=== PATIENT | female | born 1975 | race Caucasian/White ===

== ENCOUNTER 2019-03-18 06:48 | Outpatient (CLI) | payer BC, OTHER ==
[2019-03-19 13:09] LABS: ESTRADIOL 68.8 pg/mL (.); FSH, SERUM 41.2 mIU/mL (.); LUTEINIZING HORMONE 48.7 mIU/mL (.); PROGESTERONE 0.3 ng/mL (.); PROLACTIN 20.8 ng/mL (4.8-23.3)
== END 2019-03-18 23:59 | disposition home or self-care (01) ==
LOC: LAB 06:48
PROVIDERS: ATTEND Physician Assistant
DX: L81.1 Chloasma (principal); R23.2 Flushing; R74.8 Abnormal levels of other serum enzymes; N92.6 Irregular menstruation, unspecified
CPT/HCPCS: 36415; 82670; 82679; 82977; 83001; 83002; 84075; 84080; 84144; 84146

== ENCOUNTER 2019-04-21 10:56 | Emergency (ER) | payer OTHER ==
[~2019-04-21] VITALS: Ht 160 cm; Wt 79.5 kg
[2019-04-21 11:04] VITALS: BP 143/85
[2019-04-21 11:32] LABS: URINE HCG NEGATIVE (NEG)
[2019-04-21 11:41] LABS: CLARITY,URINE CLOUDY (Clear); COLOR,URINE STRAW (Yellow); GLUCOSE, URINE NEGATIVE (Neg); KETONES,URINE NEGATIVE (Neg); LEUKOCYTE ESTERASE ,URINE LARGE (Neg); NITRITES, URINE NEGATIVE (Neg); OCCULT BLOOD,URINE LARGE (Neg); PH,URINE 5.5 (4.8-8.0); PROTEIN,URINE NEGATIVE (Neg); UROBILINOGEN,URINE 0.2 E.U/dL (0.2-1.0)
[2019-04-21 11:42] LABS: UA COLLECTION TYPE CLN CATCH MIDSTREAM
[2019-04-21 12:10] LABS: RBC,URINE 0-2 /HPF (0-2); SQUAMOUS EPITHELIAL CELL,UR FEW /LPF (FEW); WBC,URINE TNTC /HPF (0-4)
[2019-04-21 12:11] LABS: BACTERIA,URINE 1+ /HPF (Neg); WBC CLUMPS,URINE FEW /HPF (NEGATIVE)
[2019-04-21] MEDS ORDERED: phenazopyridine 100mg tablet PO ONE (12:25)
[2019-04-21] MEDS ORDERED: CefTRIAXone 1000mg IM Kit (w/lidocaine diluent) IM ONE (12:25)
[2019-04-21] MEDS ORDERED: ciprofloxacin 250mg tablet PO ONE (12:25)
[2019-04-21] MEDS ORDERED: PHEN-716 PO (12:30)
[2019-04-21] MEDS ORDERED: CIPR-259 PO (12:30)
== END 2019-04-21 12:48 | disposition home or self-care (01) ==
LOC: ER 10:57
DX: N39.0 Urinary tract infection, site not specified (principal); Z87.442 Personal history of urinary calculi
CPT/HCPCS: 81001; 81025; 87088; 87186; 96372; 99283; J0696; 87077

== ENCOUNTER 2019-07-29 06:42 | Outpatient (CLI) | payer OTHER ==
[~2019-07-29 06:42] MED LIST: PHEN-716 PO
[2019-07-29 07:45] LABS: ALANINE AMINOTRANSFERASE 27 U/L (12-78); ALBUMIN 4.2 G/DL (3.4-5.0); ALBUMIN/GLOBULIN RATIO 1.1 (1.1-1.5); ALKALINE PHOSPHATASE 138 IU/L (46-116); ANION GAP 7 (8-16); ASPARTATE AMINO TRANSFERASE 23 U/L (10-37); BILIRUBIN,TOTAL 0.5 MG/DL (0.1-1.0); BLOOD UREA NITROGEN 12 MG/DL (7-18); CALCIUM 8.5 MG/DL (8.5-10.1); CHLORIDE 102 MMOL/L (99-107); CREATININE 0.75 MG/DL (0.40-0.90); GLUCOSE 92 MG/DL (70-104); POTASSIUM 4.2 MMOL/L (3.5-5.1); SODIUM 136 MMOL/L (135-145); TOTAL PROTEIN 7.9 G/DL (6.4-8.2); eGFR 85 ML/MIN
[2019-07-30 11:26] LABS: ESTRADIOL 34.2 pg/mL (.); FSH, SERUM 41.4 mIU/mL (.); PROGESTERONE 0.2 ng/mL (.)
[2019-07-31 17:47] LABS: TESTOSTERONE, FREE, DIRECT 9.4 pg/mL (0.0-4.2)
== END 2019-07-29 23:59 | disposition home or self-care (01) ==
LOC: LAB 06:42
PROVIDERS: ATTEND Specialist
DX: N91.5 Oligomenorrhea, unspecified (principal)
CPT/HCPCS: 36415; 80053; 82670; 83001; 84144; 84146; 84270; 84402; 84403

== ENCOUNTER 2019-12-20 06:39 | Outpatient (CLI) | payer OTHER ==
[2019-12-20 07:00] LABS: HEMATOCRIT 37.5 % (35.0-45.0); HEMOGLOBIN 12.4 g/dl (12.0-16.0); MEAN CORPUSCULAR HEMOGLOBIN 28.7 PG (27.0-31.0); MEAN CORPUSCULAR VOLUME 87.1 FL (78-98); MEAN PLATELET VOLUME 7.1 FL (7.4-10.4); PLATELET COUNT 412 X10'3 (140-440); RED CELL DISTRIBUTION WIDTH 12.9 % (11.5-14.5); WHITE BLOOD COUNT 11.6 X10'3 (4.5-11.0)
== END 2019-12-20 23:59 | disposition home or self-care (01) ==
LOC: LAB 06:39
PROVIDERS: ATTEND Obstetrics & Gynecology
DX: N92.0 Excessive and frequent menstruation with regular cycle (principal)
CPT/HCPCS: 36415; 85027

== ENCOUNTER 2020-08-07 13:06 | Outpatient (CLI) | payer BC | END 2020-08-07 23:59 | disposition home or self-care (01) | LOC: LAB 13:06 | PROVIDERS: ATTEND Physician Assistant | DX: N39.0 Urinary tract infection, site not specified (principal) | CPT/HCPCS: 87077; 87088; 87186 ==

== ENCOUNTER 2020-09-21 09:22 | Inpatient (IN) | payer BC ==
[2020-09-14 15:52] LABS: BASOPHILS # (AUTO) 0.1 X10'3 (0-0.2); BASOPHILS % (AUTO) 0.6 % (0-1); EOSINOPHILS # (AUTO) 0.4 X10'3 (0-0.9); EOSINOPHILS % (AUTO) 2.7 % (0-6); LYMPHOCYTES % (AUTO) 15.2 % (21-51); MEAN CORPUSCULAR HEMOGLOBIN 26.3 PG (27.0-31.0); MEAN CORPUSCULAR VOLUME 79.8 FL (78-98); MONOCYTES # (AUTO) 0.6 X10'3 (0-0.9); MONOCYTES % (AUTO) 4.1 % (2-12); NEUTROPHILS # (AUTO) 10.3 X10'3 (1.8-7.7); NEUTROPHILS % (AUTO) 77.4 % (42-75); PRE OP HEMATOCRIT 36.1 % (35.0-45.0); PRE OP HEMOGLOBIN 11.9 g/dL (12.0-16.0); PRE OP PLATELET COUNT 438 X10'3 (140-440); RED BLOOD COUNT 4.52 X10'6 (4.20-5.60); RED CELL DISTRIBUTION WIDTH 16.1 % (11.5-14.5)
[2020-09-14 16:05] LABS: ALBUMIN 3.6 G/DL (3.4-5.0); ALBUMIN/GLOBULIN RATIO 0.9 (1.1-1.5); ALKALINE PHOSPHATASE 86 IU/L (46-116); BLOOD UREA NITROGEN 9 MG/DL (7-18); BUN/CREATININE RATIO 9.6 (6.6-38.0); CALCIUM 8.6 MG/DL (8.5-10.1); CHLORIDE 101 MMOL/L (99-107); CREATININE 0.94 MG/DL (0.40-0.90); PRE OP ALT 26 U/L (30-65); PRE OP ANION GAP 13 (8-16); PRE OP AST 21 U/L (10-37); PRE OP BILIRUB, TOTAL 0.2 MG/DL (0.0-1.0); PRE OP GLUCOSE 115 MG/DL (70-104); PRE OP POTASSIUM 3.8 MMOL/L (3.4-5.1); PRE OP SODIUM 138 MMOL/L (135-145); TOTAL CARBON DIOXIDE 24.1 MMOL/L (24-32); TOTAL PROTEIN 7.5 G/DL (6.4-8.2); eGFR 65 ML/MIN
[2020-09-14 16:30] LABS: HCG SERUM QL NEGATIVE
[2020-09-21] VITALS (20 sets, daily range): BP systolic 95–140; BP diastolic 52–93
[~2020-09-21] VITALS: Ht 157.5 cm; Wt 79.4 kg
[~2020-09-21 09:22] MED LIST changes: -PHEN-716 PO; +[UNRECOGNIZED DRUG - CODE] PO; +ceFAZolin 2gm in dextrose, iso 50 ML IV ONE; +famotidine 20mg tablet PO ONE; +ringers solution, lacted 1,000 ML IV SCH
[2020-09-21] MEDS ORDERED: BUPIVACAINE liposomal/PF 13.3 MG/ML vial IM ONE (12:50)
[2020-09-21] MEDS ORDERED: BUPIVAcaine/PF 2.5mg/ml (0.25%) 10ml vial ONE (12:50)
[2020-09-21] MEDS ORDERED: BUPIVAcaine 0.25% w/Epi /PF 30ml vial ONE (12:59)
[2020-09-21] MEDS ORDERED: midazolam 2 mg/2 ml injection ONE (13:09)
[2020-09-21] MEDS ORDERED: fentaNYL /PF 50mcg/ml 5ml ampule ONE (13:11)
[2020-09-21] MEDS ORDERED: acetaminophen 1,000mg/100ml IV 100 ML IV ONE (13:44)
[2020-09-21] MEDS ORDERED: propofol inj 20 ML IV ONE (13:50)
[2020-09-21] MEDS ORDERED: LIDOcaine 2% (20mg/ml) 5ml vial ONE (13:50)
[2020-09-21] MEDS ORDERED: rocuronium 10mg/ml inj IV ONE (13:50)
[2020-09-21] MEDS ORDERED: dexamethasone sod phosphate 4mg/ml inj. ONE (14:21)
[2020-09-21] MEDS ORDERED: ondansetron/PF 4mg/2ml inj ONE (14:22)
[2020-09-21] MEDS ORDERED: glycopyrrolate 0.2mg/ml inj ONE (14:45)
[2020-09-21] MEDS ORDERED: diphenhydrAMINE 50 mg/ml inj IV PRN (14:45)
[2020-09-21] MEDS ORDERED: zolpidem 5mg tablet PO PRN (14:45)
[2020-09-21] MEDS ORDERED: HYDROcodone/acetaminophen 5mg/325mg tablet PO PRN (14:45)
[2020-09-21] MEDS ORDERED: ondansetron/PF 4mg/2ml inj IV PRN ×2 (14:45→15:15)
[2020-09-21] MEDS ORDERED: mag hydrox/Alum hydrox/simeth 30ml oral suspension PO PRN (14:45)
[2020-09-21] MEDS ORDERED: neostigmine methylsulfate 1 MG/ML 10ml vial ONE (14:45)
[2020-09-21] MEDS ORDERED: ringers solution, lacted 1,000 ML IV SCH ×2 (14:45→15:15)
[2020-09-21] MEDS ORDERED: CADD PCA waste documentation MC PRN (14:45)
[2020-09-21] MEDS ORDERED: naloxone 0.4 mg/ml inj IV PRN (14:45)
[2020-09-21] MEDS ORDERED: magnesium hydroxide 30ml (MOM) UD suspension PO PRN (14:45)
[2020-09-21] MEDS ORDERED: morphine 10mg/ml inj. ONE (14:49)
[2020-09-21] MEDS ORDERED: meperidine/PF 25mg/ml syringe ONE (14:52)
--- NOTE | 2020-09-21 14:56 | NUR ---
Received from OR via [facility], accompanied by Anesthesiologist and report given by Anesthesiologist. PATIENT IS CRYING LAYING ON [employer], COMPLAINS OF PAIN, DEMEROL 25MG IV GIVEN FOR PAIN AT 1455, INCISION SITE AT LOWER ABDOMEN WITH KEN AND STERI STRIPS IN PLACE, NO DRAINAGE OR BLEEDING NOTED AT THIS TIME, PIV LEFT WRIST 20G LR RUNNING AT 100ML/HR, SUN CATHETER IN PLACE DRAINING LIGHT YELLOW URINE IN BAG, WILL MONITOR. Addendum: 09/21/20 at 1504 by Kareem Luz RN, RN Amended: Links added.
[2020-09-21] MEDS: HYDROmorphone/NS 1 mg/ml CADD 50 ML IV SCH ×6 (15:00→23:00)
[2020-09-21] MEDS ORDERED: ketorolac trometh. 30mg/ml inj. IV ONE (15:00)
[2020-09-21] MEDS ORDERED: proCHLORperazine 10 MG/2 ml inj IV PRN (15:15)
[2020-09-21] MEDS ORDERED: hydrALAZINE 20mg/ml inj. IV PRN (15:15)
[2020-09-21] MEDS ORDERED: labetalol 20mg/4ml (5mg/ml) syringe IV PRN (15:15)
[2020-09-21] MEDS ORDERED: morphine 2 MG/ML inj. syringe IV PRN (15:15)
[2020-09-21] MEDS ORDERED: meperidine/PF 25mg/ml syringe IV PRN ×3 (15:15)
[2020-09-21] MEDS ORDERED: morphine 4 MG/ML inj SYRINge IV PRN (15:15)
--- NOTE | 2020-09-21 16:18 | NUR ---
Patient in room [facility]. I have received report from DEBORAH CAMPBELL FROM [facility] and had the opportunity to ask questions and assume patient care.
--- NOTE | 2020-09-21 16:37 | NUR ---
ALL CRITERIA FOR TRANSFER TO THE FLOOR HAS BEEN ACHIEVED. REPORT GIVEN RO PURNIMA CABRERA, AND ALL QUESTIONS ANSWERED, VSS. BED LOW 3 RAILS UP, CALL LIGHT PRESENT AND PATIENT HOOKED UP TO ALL LINES AND VSS. PATIENTS RN PRESENT TO ACCEPT CARE. SUN CATHETER WITH LIGHT YELLOW URINE DRAINING IN BAG, BAG IS EMPTIED 180ML OF URINE OUTPUT, PURNIMA CABRERA IS PRESENT AT THE BEDSIDE TO ASSESS THE PATIENT, RESEARCH INSTRUCTOR IN USE, PATIENT IS IN 5/10 PAIN, TOLERABLE LEVEL AT THIS TIME. SCDS ON BILATERAL LOWER EXTREMITIES, PIV ON LEFT WRIST 20G RUNNING WITH LR 100ML/HR, BG 137 PRIOR TO TRANSFER, INCISION SITE ON LOWER ABD CLEAN AND DRY WITH NO DRAINAGE OR BLEEDING. Addendum: 09/21/20 at 1642 by Kareem Hamilton - DEBORAH RN Amended: Links added.
--- NOTE | 2020-09-21 18:30 | NUR ---
Problems reprioritized. Patient report given, questions answered & plan of care reviewed with DEBORAH HILL.
--- NOTE | 2020-09-21 18:53 | NUR ---
Patient in room [facility]. I have received report from PURNIMA CABRERA and had the opportunity to ask questions and assume patient care.
[2020-09-21] MEDS: docusate sod 100mg capsule PO SCH (20:00)
[2020-09-22] VITALS: BP 134/80
[2020-09-22] MEDS: HYDROmorphone/NS 1 mg/ml CADD 50 ML IV SCH ×3 (01:00→05:00)
--- NOTE | 2020-09-22 05:48 | NUR ---
FORENSIC ECONOMIST DISCONTINUED AT 0540. Addendum: 09/22/20 at 0548 by Ledy Maldonado RN Amended: Links added.
--- NOTE | 2020-09-22 06:05 | NUR ---
Patient in room [facility]. I have received report from DEBORAH Villafana and had the opportunity to ask questions and assume patient care.
[2020-09-22 06:30] VITALS: BP 121/75
[2020-09-22 06:33] LABS: BASOPHILS % (AUTO) 0.1 % (0-1); EOSINOPHILS % (AUTO) 0 % (0-6); HEMATOCRIT 37.4 % (35.0-45.0); HEMOGLOBIN 12.1 g/dl (12.0-16.0); LYMPHOCYTES % (AUTO) 5.8 % (21-51); MEAN CORPUSCULAR HEMOGLOBIN 26.1 PG (27.0-31.0); MEAN CORPUSCULAR HGB CONC 32.3 g/dL (33.0-36.5); MEAN CORPUSCULAR VOLUME 80.7 FL (78-98); MEAN PLATELET VOLUME 7.8 FL (7.4-10.4); MONOCYTES # (AUTO) 1.3 X10'3 (0-0.9); MONOCYTES % (AUTO) 7.4 % (2-12); NEUTROPHILS % (AUTO) 86.7 % (42-75); PLATELET COUNT 353 X10'3 (140-440); RED BLOOD COUNT 4.63 X10'6 (4.20-5.60); RED CELL DISTRIBUTION WIDTH 16.5 % (11.5-14.5); WHITE BLOOD COUNT 17.2 X10'3 (4.5-11.0)
--- NOTE | 2020-09-22 06:43 | NUR ---
Problems reprioritized. Patient report given, questions answered & plan of care reviewed with SUSSY RN.
[2020-09-22] MEDS: docusate sod 100mg capsule PO SCH (07:48)
[2020-09-22] MEDS: HYDROcodone/acetaminophen 10/325mg tab PO PRN ×2 (07:49→12:05)
[2020-09-22] MEDS ORDERED: HYDR-3965 PO (11:20)
--- NOTE | 2020-09-22 12:15 | NUR ---
DC inst provided to pt. IV DC'd, tip intact. All belongings sent w/pt. WC to front lobby.
== END 2020-09-22 12:31 | disposition home or self-care (01) | DRG 743 ==
LOC: PAS IN 09:22 → EDSTATUS 11:30 → SUR 3N 16:39
PROVIDERS: ADMIT Obstetrics & Gynecology; ATTEND Obstetrics & Gynecology
PROC: 0UT70ZZ Resection of Bilateral Fallopian Tubes, Open Approach (ICD-10-PCS; 2020-09-21)
PROC: 0UT20ZZ Resection of Bilateral Ovaries, Open Approach (ICD-10-PCS; 2020-09-21)
PROC: 0UT90ZL Resection of Uterus, Supracervical, Open Approach (ICD-10-PCS; principal; 2020-09-21 13:08)
DX: D25.9 Leiomyoma of uterus, unspecified (principal)
CPT/HCPCS: 36415; 80053; 82948; 84703; 85025; 86885; 86900; 86901; 87081; 87635; A4215; A4355; A4618; A7000; C1758; C9290; G0378; J0131; J1100; J1170; J1885; J2001; J2175; J2250; J2270; J2405; J2704; J2710; J3010; J3490; J7120

== ENCOUNTER 2020-12-13 06:39 | Outpatient (CLI) | payer BC ==
[2020-12-13 07:21] LABS: BASOPHILS % (AUTO) 0.4 % (0-1); EOSINOPHILS # (AUTO) 0.5 X10'3 (0-0.9); HEMATOCRIT 42.9 % (35.0-45.0); HEMOGLOBIN 14.4 g/dl (12.0-16.0); LYMPHOCYTES # (AUTO) 1.8 X10'3 (1.1-4.8); LYMPHOCYTES % (AUTO) 20.4 % (21-51); MEAN CORPUSCULAR HEMOGLOBIN 28.4 PG (27.0-31.0); MEAN CORPUSCULAR HGB CONC 33.5 g/dL (33.0-36.5); MEAN CORPUSCULAR VOLUME 84.6 FL (78-98); MEAN PLATELET VOLUME 7.4 FL (7.4-10.4); MONOCYTES # (AUTO) 0.7 X10'3 (0-0.9); MONOCYTES % (AUTO) 7.3 % (2-12); NEUTROPHILS % (AUTO) 66.9 % (42-75); PLATELET COUNT 308 X10'3 (140-440); RED BLOOD COUNT 5.08 X10'6 (4.20-5.60)
[2020-12-13 07:48] LABS: ALANINE AMINOTRANSFERASE 50 U/L (12-78); ALKALINE PHOSPHATASE 149 IU/L (46-116); ANION GAP 12 (8-16); ASPARTATE AMINO TRANSFERASE 38 U/L (10-37); BILIRUBIN,TOTAL 0.3 MG/DL (0.1-1.0); BLOOD UREA NITROGEN 14 MG/DL (7-18); BUN/CREATININE RATIO 19.2 (6.6-38.0); CALCIUM 9.3 MG/DL (8.5-10.1); CHLORIDE 101 MMOL/L (99-107); CHOL/HDL RATIO 3.1 (0.00-4.99); CHOLESTEROL 223 MG/DL (0-200); CREATININE 0.73 MG/DL (0.40-0.90); GLUCOSE 101 MG/DL (70-104); HDL CHOLESTEROL 73 MG/DL (35-60); LDL CHOLESTEROL 132 MG/DL (50-100); POTASSIUM 4.4 MMOL/L (3.5-5.1); SODIUM 138 MMOL/L (135-145); TOTAL CARBON DIOXIDE 25.3 MMOL/L (24-32); TOTAL PROTEIN 8.1 G/DL (6.4-8.2); TRIGLYCERIDES 91 MG/DL (20-135); eGFR 87 ML/MIN
[2020-12-14 12:53] LABS: ESTRADIOL 25.4 pg/mL (.); PROGESTERONE 0.1 ng/mL (.)
== END 2020-12-13 23:59 | disposition home or self-care (01) ==
LOC: LAB 06:39
PROVIDERS: ATTEND Physician Assistant
DX: Z00.00 Encounter for general adult medical examination without abnormal findings (principal); R23.2 Flushing
CPT/HCPCS: 36415; 80053; 80061; 82670; 82679; 84144; 84402; 84403; 84439; 84443; 85025

== ENCOUNTER 2021-10-01 11:18 | Emergency (ER) | payer BC ==
[~2021-10-01] VITALS: Ht 160 cm; Wt 84.1 kg
[2021-10-01 11:32] VITALS: BP 132/89
[2021-10-01 12:26] LABS: CLARITY,URINE CLEAR (Clear); COLOR,URINE YELLOW (Yellow); GLUCOSE, URINE NEGATIVE (Neg); KETONES,URINE NEGATIVE (Neg); LEUKOCYTE ESTERASE ,URINE NEGATIVE (Neg); NITRITES, URINE NEGATIVE (Neg); OCCULT BLOOD,URINE TRACE-LYSED (Neg); PROTEIN,URINE NEGATIVE (Neg); UROBILINOGEN,URINE 0.2 E.U/dL (0.2-1.0)
[2021-10-01 12:31] LABS: UA COLLECTION TYPE CLN CATCH MIDSTREAM
[2021-10-01 12:34] LABS: BACTERIA,URINE 2+ /HPF (Neg); RBC,URINE 0-2 /HPF (0-2); SQUAMOUS EPITHELIAL CELL,UR FEW /LPF (FEW)
[2021-10-01] MEDS ORDERED: SULF1TAB49 PO (12:45)
== END 2021-10-01 13:01 | disposition home or self-care (01) ==
LOC: ER 11:19
DX: N39.0 Urinary tract infection, site not specified (principal); Z87.440 Personal history of urinary (tract) infections
CPT/HCPCS: 81001; 87077; 87088; 87186; 99283